=== PATIENT | female | born 1935 | race Caucasian/White ===

== ENCOUNTER 2019-10-01 12:13 | Emergency (ER) | payer OTHER ==
[2019-10-01 12:23] VITALS: TEMP 98.1; BMI 20.7
[2019-10-01] MEDS ORDERED: SODIUM CHLORIDE 0.9% 500 ML INFUS.BAG IV ONE (13:28)
[2019-10-01] MEDS ORDERED: ACETAMINOPHEN 1000 MG/100 ML VIAL (NON FORMULARY) IVPB ONE (13:28)
[2019-10-01] MEDS ORDERED: ACETAMINOPHEN INJECTION 100 ML IVPB ONE (13:33)
[2019-10-01 13:37] LABS: BASO % 0.6 % (0-2.0); EOS % 1.9 % (0-4.5); HEMATOCRIT 41.6 % (32.4-45.2); HEMOGLOBIN 13.2 GM/dL (10.7-15.3); MCH 23.8 pg (25.7-33.7); MCHC 31.7 g/dl (32.0-36.0); MEAN PLT VOLUME 9.4 fl (7.5-11.1); MONO % 10.1 % (3.8-10.2); NEUT % 61.4 % (42.8-82.8); PLATELET COUNT 250 K/MM3 (134-434); RBC 5.55 M/mm3 (3.60-5.2); RDW 16.3 % (11.6-15.6); WHITE BLOOD COUNT 7.8 K/mm3 (4.0-10.0)
[2019-10-01 13:49] LABS: INR 0.98 (0.83-1.09); PROTHROMBIN TIME (PATIENT) 11.6 SEC (9.7-13.0)
[2019-10-01 13:52] LABS: ACTIVATED PTT 31.3 SECONDS (25.2-36.5)
--- NOTE | 2019-10-01 14:28 | PDOC ---
History of Present Illness - General Chief Complaint: Chest Pain Stated Complaint: CHEST PAIN Time Seen by Provider: 10/01/19 12:41 - History of Present Illness Initial Comments: 10/01/19 15:23 84 y/o F hx of CAD s/p CABG (2001), coronary stent placement (on Plavix) NIDDM, HLD, HTN, hypothyroidism,anxiety presents to the ED with chest pain. Pressure like pain began this a.m and radiates to her back. Pain is worsened when she gets anxious. She took some tylenol at home this a.m with no relief. She denies any nausea, vomiting, diaphoresis, pleuritic pain, shortness of breath, unilateral leg swelling, fevers. The patient recently travelled from [place]. Past History - Past Medical History Allergies/Adverse Reactions: Allergies Allergy/AdvReac Type Severity Reaction Status Date / Time meperidine [From Demerol] Allergy Verified 10/01/19 12:23 Home Medications: Ambulatory Orders Levothyroxine Sodium [Synthroid] 125 mcg PO DAILY #15 tablet 10/01/19 COPD: No Diabetes: Yes HTN: Yes Hypercholesterolemia: Yes Thyroid Disease: Yes - Psycho Social/Smoking Cessation Hx Smoking History: Never smoked Review of Systems - Review of Systems Constitutional: No: Chills, Fever HEENTM: Yes: Mouth Pain, Dental Problems Respiratory: No: Cough, Shortness of Breath Cardiac (ROS): Yes: Chest Pain. No: Syncope ABD/GI: No: Nausea, Vomiting : No: Burning, Dysuria Musculoskeletal: Yes: Joint Pain Integumentary: No: Bruising, Change in Color Neurological: No: Headache, Numbness Psychiatric: Yes: Anxiety *Physical Exam - Vital Signs Last Vital Signs Temp Pulse Resp BP Pulse Ox 98.1 F 69 18 165/71 98 10/01/19 12:19 10/01/19 12:19 10/01/19 12:19 10/01/19 12:19 10/01/19 12:19 - Physical Exam 10/01/19 15:17 GENERAL: Awake, alert, and fully oriented, in no acute distress HEAD: No signs of trauma, normocephalic, atraumatic. EYES: PERRLA, EOMI, sclera anicteric, conjunctiva clear ENT: Auricles normal inspection, hearing grossly normal, nares patent, oropharynx clear without exudates. Moist mucosa NECK: Normal ROM, supple, no lymphadenopathy, JVD, or masses LUNGS: No distress, speaks full sentences, clear to auscultation bilaterally HEART: Regular rate and rhythm, normal S1 and S2, no murmurs, rubs or gallops, peripheral pulses normal and equal bilaterally. ABDOMEN: Soft, nontender, normoactive bowel sounds. No guarding, no rebound. No masses EXTREMITIES : Normal inspection, Normal range of motion, +edema. No clubbing or cyanosis NEUROLOGICAL: Cranial nerves II through XII grossly intact. Normal speech, no focal sensorimotor deficits SKIN: Warm, Dry, normal turgor, no rashes or lesions noted Heart Score/ECG Review - History History: Slightly suspicious - Electrocardiogram EKG: Non specific repolarization disturbance - Age Age: >/= 65 - Risk Factors Risk Factors Heart Score: Yes Hx Hypercholesterolemia, Yes Hx Hypertension, Yes Hx Diabetes Based on the list above the patient has:: >/=3 risk factors or Hx atherosclerotic disease - Troponin Troponin: </= normal limit - Score Heart Score - Total: 5 ED Treatment Course - LABORATORY CBC & Chemistry Diagram: 10/01/19 12:42 10/01/19 12:42 - ADDITIONAL ORDERS Additional order review: Laboratory Results 10/01/19 10/01/19 10/01/19 12:42 12:42 12:42 PT with INR 11.60 INR 0.98 PTT (Actin FS) 31.3 Troponin I < 0.02 B-Natriuretic Peptide 69.3 10/01/19 12:42 RBC 5.55 H MCV 75.0 L MCHC 31.7 L RDW 16.3 H MPV 9.4 Neutrophils % 61.4 Lymphocytes % 26.0 Monocytes % 10.1 Eosinophils % 1.9 Basophils % 0.6 - RADIOLOGY Radiology Studies Ordered: Category Date Time Status CHEST X-RAY PORTABLE* [RAD] Stat Radiology 10/01/19 12:43 Completed - Medications Given in the ED: ED Medications Discontinued Medications Generic Name Dose Route Start Last Admin Trade Name Freq PRN Reason Stop Dose Admin Acetaminophen 1,000 mg 10/01/19 13:28 10/01/19 13:42 Ofirmev Injection - IVPB 10/01/19 13:29 1,000 mg ONCE ONE Administration Sodium Chloride 1,000 ml 10/01/19 13:28 10/01/19 13:42 Normal Saline - IV 10/01/19 13:29 1,000 ml ONCE ONE Administration Medical Decision Making - Medical Decision Making 10/01/19 14:27 84 y/o F hx of CAD s/p CABG (2001), coronary stent placement (on Plavix) NIDDM, HLD, HTN, hypothyroidism,anxiety presents to the ED with chest pain EKG normal sinus rhythm, t wave abnormality , t wave inversion in V1, V2,V3 CXR Impression median sternotomy clear lungs. no acute chest pathology normal mediastinum Trop negative 10/01/19 15:20 chest CTA ordered. 10/01/19 15:38 10/01/19 15:39 10/01/19 15:41 No signs of pulmonary embolus on CTA. evaluation of lower lobe vessels limited due to respiratory motion artifact correlation with bilateral lower extremity venous sonography may be considered Pt decided to leave AMA. 10/19/19 12:10 10/19/19 12:13 Discharge - Discharge Information Problems reviewed: Yes Clinical Impression/Diagnosis: Chest pain Qualifiers: Chest pain type: unspecified Qualified Code(s): R07.9 - Chest pain, unspecified Disposition: AGAINST MEDICAL ADVICE - Additional Discharge Information Prescriptions: Levothyroxine Sodium [Synthroid] 125 mcg PO DAILY #15 tablet - Follow up/Referral Referrals: Rich Osullivan MD [Staff Physician] - - Patient Discharge Instructions Patient Printed Discharge Instructions: DI for Chest Pain Additional Instructions: You were seen in the emergency department for chest pain Admission for further work up was recommended. You have decided to leave against medical advice. the risks and benefits have been explained to you, risks include permanent disability and . Follow up to establish care with a primary doctor within 2-3 days Return to the emergency department at any time to complete your evaluation - Post Discharge Activity
[2019-10-01 14:47] LABS: ALBUMIN 3.5 g/dl (3.4-5.0); ALK PHOS 71 U/L (45-117); ANION GAP 5 MMOL/L (8-16); BILIRUBIN,TOTAL 0.4 mg/dL (0.2-1); BLOOD UREA NITROGEN 9.2 mg/dL (7-18); CHLORIDE 105 mmol/L (98-107); CO2 27 mmol/L (21-32); CREATININE 0.7 mg/dL (0.55-1.3); GLUCOSE,RANDOM 146 mg/dL (74-106); POTASSIUM 5.3 mmol/L (3.5-5.1); SGOT/AST 44 U/L (15-37); SGPT/ALT 30 U/L (13-61); SODIUM 138 mmol/L (136-145); TOT PROT 6.9 g/dl (6.4-8.2)
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
[2019-10-01 17:30] VITALS: BP 159/66; PULSE 78
--- NOTE | 2019-10-02 11:03 | EKG ---
Test Reason : Blood Pressure : / mmHG Vent. Rate : 064 BPM Atrial Rate : 064 BPM P-R Int : 176 ms QRS Dur : 084 ms QT Int : 392 ms P-R-T Axes : 062 006 029 degrees QTc Int : 404 ms NORMAL SINUS RHYTHM T WAVE ABNORMALITY, CONSIDER ANTERIOR ISCHEMIA ABNORMAL ECG NO PREVIOUS ECGS AVAILABLE Confirmed by DARRYN ZAMUDIO MD ([id number]) on 10/02/2019 11:02:53 AM Referred By: Confirmed By:DARRYN ZAMUDIO MD
== END 2019-10-01 17:31 | disposition left against medical advice (07) ==
LOC: JER 12:13
DX: R07.9 Chest pain, unspecified (principal); I25.10 Atherosclerotic heart disease of native coronary artery without angina pectoris; Z95.1 Presence of aortocoronary bypass graft; I10 Essential (primary) hypertension; Z95.5 Presence of coronary angioplasty implant and graft; E78.5 Hyperlipidemia, unspecified; E11.9 Type 2 diabetes mellitus without complications; Z79.84 Long term (current) use of oral hypoglycemic drugs; E03.9 Hypothyroidism, unspecified; F41.9 Anxiety disorder, unspecified; Z79.02 Long term (current) use of antithrombotics/antiplatelets
CPT/HCPCS: 36415; 71045-TC-FY; 71275-TC; 80053; 83880; 84484; 85025; 85610; 85730; 93005; 93010; 99285-25; J0131; Q9967